=== PATIENT | female | born 1940 | race Caucasian/White ===

== ENCOUNTER 2017-09-26 14:18 | Emergency (ER) | payer MEDICARE, BC ==
[~2017-09-26] VITALS: Ht 152.4 cm; Wt 57.2 kg
[~2017-09-26 14:18] MED LIST: ASPI81TA44 PO; BRIN10DR EACHEYE; METF-440 PO; MOXI3DRO LEFTEYE; SODI15DR7 RIGHTEYE
[2017-09-26 15:09] LABS: BASOPHILS % (AUTO) 0.8 % (0.0-2.0); EOSINOPHILS % (AUTO) 0.4 % (0.0-6.0); HEMATOCRIT 37 % (33-45); HEMOGLOBIN 12.7 g/dL (11.5-14.8); LYMPHOCYTES # (AUTO) 1.9 /CMM (0.8-4.8); LYMPHOCYTES % (AUTO) 33.2 % (20.0-44.0); MEAN CORPUSCULAR HGB CONC 34 g/dl (31.0-36.0); MEAN CORPUSCULAR VOLUME 87 fL (82-100); MONOCYTES # (AUTO) 0.4 /CMM (0.1-1.30); MONOCYTES % (AUTO) 7.9 % (2.0-12.0); NEUTROPHILS # (AUTO) 3.3 /CMM (1.8-8.9); NEUTROPHILS % (AUTO) 57.7 % (43.0-81.0); PLATELET COUNT (AUTO) 186 /CMM (150-450); RED BLOOD CELL COUNT(AUTO) 4.25 MIL/uL (4.0-5.2); WHITE BLOOD COUNT (AUTO) 5.6 K/uL (4.3-11.0)
[2017-09-26 15:25] LABS: CALCIUM, SERUM 9.5 mg/dL (8.5-10.1); CARBON DIOXIDE 28 mmol/L (21-32); CHLORIDE 104 mmol/L (98-107); CREATININE 0.7 mg/dL (0.6-1.3); GLUCOSE 100 mg/dL (74-106); POTASSIUM 3.9 mmol/L (3.5-5.1); SODIUM SERUM 137 mmol/L (136-145); UREA NITROGEN, BLOOD 13 mg/dL (7-18)
[2017-09-26 18:28] VITALS: BP 138/84
== END 2017-09-26 18:28 | disposition home or self-care (01) ==
LOC: ER 14:19
DX: S05.11XA Contusion of eyeball and orbital tissues, right eye, initial encounter (principal); M79.644 Pain in right finger(s); M79.645 Pain in left finger(s); E11.9 Type 2 diabetes mellitus without complications; I10 Essential (primary) hypertension; J45.909 Unspecified asthma, uncomplicated; Z79.82 Long term (current) use of aspirin; Z85.3 Personal history of malignant neoplasm of breast; Z88.2 Allergy status to sulfonamides; Z88.5 Allergy status to narcotic agent; W06.XXXA Fall from bed, initial encounter; Y93.89 Activity, other specified; Y92.89 Other specified places as the place of occurrence of the external cause; Y99.8 Other external cause status
CPT/HCPCS: 36415; 70450-TC; 70486-TC; 73140-TC; 80048-TC; 85025-TC; 85730-TC; A4606; Z7610

== ENCOUNTER 2022-03-25 10:42 | Inpatient (IN) | payer MEDICARE, BC, OTHER ==
[~2022-03-25] VITALS: Ht 154.9 cm; Wt 43.5 kg
--- NOTE | 2022-03-25 10:14 | NUR ---
RN NOTE WBC 1.3, PLT 3.[address] SABA JUSTIN AWARE.
--- NOTE | 2022-03-25 11:00 | NUR ---
[id number] FROM HOME C/O SOB SATTING AT 86% RA, GIVEN 6LPM SATTING AT 92%. PLACED ON BED, AWAKE ALERT RESPONDING TO VERBAL STIMULI, BREATHING EVEN AND UNLABORED SATURATING AT 97% 4LIT O2 VIA NASAL CANULA.
--- NOTE | 2022-03-25 11:25 | NUR ---
BLOOD DRAWN AND SENT TO LAB
--- NOTE | 2022-03-25 11:36 | NUR ---
DAUGHTER CALLED, MENTIONED REACTION TO [place] GIVEN AFTER SURGERY IN 2015. PROVIDED CALLBACK NUMBER . DAUGHTER IS ON HER WAY WITH DAILY MEDICATIONS FOR RABACA, ETA 30 MIN.
[2022-03-25 11:55] LABS: BASOPHILS % (AUTO) 0.1 % (0.0-2.0); HEMATOCRIT 34 % (33-45); HEMOGLOBIN 11.1 g/dL (11.5-14.8); LYMPHOCYTES % (AUTO) 12.1 % (20.0-44.0); MEAN CORPUSCULAR HGB CONC 33 g/dl (31.0-36.0); MEAN CORPUSCULAR VOLUME 90 fL (82-100); MONOCYTES # (AUTO) 0.6 K/uL (0.1-1.30); MONOCYTES % (AUTO) 7.4 % (2.0-12.0); NEUTROPHILS # (AUTO) 6.8 K/uL (1.8-8.9); NEUTROPHILS % (AUTO) 80.4 % (43.0-81.0); PLATELET COUNT (AUTO) 124 K/uL (150-450); RED BLOOD CELL COUNT(AUTO) 3.76 MIL/uL (4.0-5.2); WHITE BLOOD COUNT (AUTO) 8.5 K/uL (4.3-11.0)
[2022-03-25] MEDS ORDERED: IPRATROPIUM NEB FS 0.5 MG/2.5 ML AMPUL.NEB NEB ONE (12:00)
[2022-03-25] MEDS ORDERED: ALBUTEROL FS 2.5 MG/3 ML VIAL.NEB NEB ONE (12:00)
[2022-03-25 12:15] LABS: CALCIUM, SERUM 9.7 mg/dL (8.5-10.1); CARBON DIOXIDE 31 mmol/L (21-32); CHLORIDE 101 mmol/L (98-107); CREATININE 0.9 mg/dL (0.6-1.3); GLUCOSE 135 mg/dL (74-106); POTASSIUM 3.7 mmol/L (3.5-5.1); SODIUM SERUM 138 mmol/L (136-145); UREA NITROGEN, BLOOD 17 mg/dL (7-18)
--- NOTE | 2022-03-25 12:20 | NUR ---
rt called for breathing tx
--- NOTE | 2022-03-25 12:22 | NUR ---
MOVE SHEET SUBMITTED.
[2022-03-25 12:28] LABS: ALANINE AMINOTRANSFERASE 27 U/L (12-78); ALKALINE PHOSPHATASE 71 U/L (46-116); ASPARTATE AMINOTRANSFERASE 39 U/L (15-37); BILIRUBIN,DIRECT 0.2 mg/dL (0.0-0.2); BILIRUBIN,TOTAL 0.6 mg/dL (0.2-1.0); TOTAL PROTEIN, SERUM 6.9 g/dL (6.4-8.2)
--- NOTE | 2022-03-25 12:28 | NUR ---
covid swab collected and sent to lab
--- NOTE | 2022-03-25 12:33 | NUR ---
GOT BED 110 QUAN ORDONEZ.
[2022-03-25] MEDS ORDERED: ATOR20TA PO (12:48)
[2022-03-25] MEDS ORDERED: MELO-107 PO (12:48)
[2022-03-25] MEDS ORDERED: CYCL5TAB PO (12:48)
[2022-03-25] MEDS ORDERED: CITA10TA9 PO (12:48)
[2022-03-25] MEDS ORDERED: MEMA10TA56 PO (12:48)
[2022-03-25] MEDS ORDERED: FERR325T23 PO (12:48)
[2022-03-25] MEDS ORDERED: DONE10TA44 PO (12:48)
[2022-03-25] MEDS ORDERED: LEVO50TA8 PO (12:48)
[2022-03-25] MEDS ORDERED: FURO40TA5 PO (12:48)
[2022-03-25] MEDS ORDERED: DOCU-141 PO (12:48)
[2022-03-25] MEDS ORDERED: MYRBETRIQ PO (12:48)
[2022-03-25] MEDS ORDERED: AZIT250T13 PO (12:49)
[2022-03-25] MEDS ORDERED: ASPIRIN 325 MG TABLET PO ONE (13:00)
--- NOTE | 2022-03-25 13:04 | NUR ---
LAB CALLED COVID POSITIVE
[2022-03-25] MEDS ORDERED: ASPIRIN 325 MG TABLET ONE (13:12)
[2022-03-25] MEDS ORDERED: POTA20TA83 PO (13:14)
--- NOTE | 2022-03-25 13:27 | NUR ---
[facility] CALLED CRISIS MANAGER PAGED.
[2022-03-25] MEDS ORDERED: DEXAMETHASONE SOD PHOSPHATE 4 MG/ML VIAL IV ONE (13:30)
[2022-03-25] MEDS ORDERED: DEXAMETHASONE SOD PHOSPHATE 10 MG/ML VIAL ONE (14:09)
[2022-03-25] MEDS ORDERED: IPRATROPIUM NEB FS 0.5 MG/2.5 ML AMPUL.NEB ONE (14:16)
[2022-03-25] MEDS ORDERED: ALBUTEROL FS 2.5 MG/3 ML VIAL.NEB ONE (14:16)
--- NOTE | 2022-03-25 15:21 | NUR ---
REPORT GIVEN TO MERY RN ROOM 110 FOR NINO
--- NOTE | 2022-03-25 15:55 | NUR ---
RN NOTE RECEIVED REPORT FROM [facility] ED AT 1521. PT ARRIVED VIA GURNEY FROM ED WITH QUAN ROBERT. PT IS A0X1, CONFUSED. VS TAKEN: BP: 118/48, HR: 74, RR: 20, AXILLARY TEMP: 97.0. BREATHING ON 3L NC WITH O2 SAT OF 98%. RAC #20 IV PATIENT AND INTACT, SL. SR ON TELE MONITOR. SKIN ASSESSMENT PERFORMED, SKIN C/D/I. NO EDEMA PRESENT. BOWELS HYPERACTIVE. BELONGINGS ACCOUNTED FOR. SAFETY MEASURES IN PLACE, BED LOCKED IN LOWEST POSITION. SIDERAILS UP X3; CALL LIGHT WITHIN REACH. WILL CONTINUE TO MONITOR
--- NOTE | 2022-03-25 16:24 | NUR ---
RN NOTES CONTACT DR HALIMA LAU FOR ADMISSION ORDER. IS AWARE.
[2022-03-25 19:39] VITALS: BP 118/48
[2022-03-25 20:00] VITALS: BP_SYST 160; BP_SYST 171; BP_DIAS 62
--- NOTE | 2022-03-25 20:00 | NUR ---
telegraph editor notes Received pts in bed awake a/ox1 non verbal .on 3liters on o2 via nc , sating 95% no sb no distress noted, v/s stable afebrile still awaiting for admission order dr ryan made aware.pts on contact isolation . ovid 19 , precautionary measures observed at all times.daughter called updated with ptd condition will continue to monitor pts.
--- NOTE | 2022-03-25 20:01 | NUR ---
RN CLOSING NOTE RN IS BED, AOX0-1, UNABLE TO MAKE NEEDS KNOWN. BREATHING ON RA WITH 02 SAT OF 99% ON 3L NC. RAC #20 IV FLUSHED AND INTACT, NO S/S BLEEDING. TITLE CLERK AUTOMOBILE SR WITH HR AT 75. ALL SAFETY MEASURES IN PLACE, BED LOCKED IN LOWEST POSITION. WILL ENDORSE CONTINUITY OF CARE TO RANCH COOK.
[2022-03-26] VITALS: BP 139/58
[2022-03-26] MEDS ORDERED: Z GUARD REMEDY 4 OZ OINT TP PRN
[2022-03-26] MEDS ORDERED: ACETAMINOPHEN 325 MG TABLET PO PRN
[2022-03-26] MEDS ORDERED: ONDANSETRON HCL/PF 4 MG/2 ML VIAL IVP PRN
[2022-03-26] MEDS ORDERED: AZITHROMYCIN 250 MG TABLET PO SCH
--- NOTE | 2022-03-26 | NUR ---
telecommunications field engineer notes Received admission order iv bumex 4mg/hr (10ml/hr )order noted and carried out.
[2022-03-26] MEDS ORDERED: BUMETANIDE INJ 4 MG in IV NS 0.9% 24 ML IV ONE (00:30)
[2022-03-26] MEDS ORDERED: BUMETANIDE INJ 0.25 MG/ML VIAL ONE ×2 (01:00→01:01)
[2022-03-26] MEDS: AZITHROMYCIN 250 MG TABLET PO SCH (01:37)
[2022-03-26] MEDS: ALBUTEROL FS 2.5 MG/0.5 ML VIAL.NEB NEB SCH ×2 (03:30→07:35)
[2022-03-26] MEDS: IPRATROPIUM NEB FS 0.5 MG/2.5 ML AMPUL.NEB NEB SCH ×2 (03:30→07:35)
[2022-03-26 04:00] VITALS: BP 142/62
--- NOTE | 2022-03-26 05:00 | NUR ---
OVERNIGHT STOCKER NOTES BLOOD GAS RESULT RELAYED TO SOO MARKS WITH NNO (PH 7.470,PCO2 42.6,P02 85.8 ,HC03 30.3)
--- NOTE | 2022-03-26 05:14 | NUR ---
PT ON 3L NC. ABG DONE. RN NOTIFIED WITH THE RESULT.
[2022-03-26 05:26] LABS: ABG OXYGEN SATURATION 96.3 % (92.0-98.5); ABG PCO2 42.6 mmHg (35.0-45.0); ABG PO2 85.8 mmHg (75.0-100.0); AaDO2 92.5 mmHg; COHb 0.1 % (0.5-1.5); MetHb 0.3 % (0.0-1.5); O2Hb 95.9 % (94.0-97.0); SITE, ABG Right Radial; VENT MODE, BG Nasal Cannula
[2022-03-26 07:19] LABS: HEMATOCRIT 35 % (33-45); HEMOGLOBIN 11.2 g/dL (11.5-14.8); LYMPHOCYTES % (AUTO) 11.8 % (20.0-44.0); MEAN CORPUSCULAR HGB CONC 32 g/dl (31.0-36.0); MEAN CORPUSCULAR VOLUME 90 fL (82-100); MONOCYTES # (AUTO) 0.4 K/uL (0.1-1.30); MONOCYTES % (AUTO) 4.7 % (2.0-12.0); NEUTROPHILS % (AUTO) 83.5 % (43.0-81.0); PLATELET COUNT (AUTO) 124 K/uL (150-450); RED BLOOD CELL COUNT(AUTO) 3.83 MIL/uL (4.0-5.2); WHITE BLOOD COUNT (AUTO) 8.4 K/uL (4.3-11.0)
--- NOTE | 2022-03-26 07:30 | NUR ---
SPANISHER OPENING NOTES: Received patient in bed awake a/ox1 non verbal .on 3liters on o2 via nc , sating 95% no sob no distress noted, v/s stable afebrile .sinus rhythm on tele monitor.pt on contact isolation for covid 19 , maintained safety measures, bed in low and locked position, side rail up, call light within reach,R AC saline lock intact patent and flushing well.will continue to monitor .
--- NOTE | 2022-03-26 07:36 | NUR ---
RN CLOSING NOTE RN IS BED, AOX0-1, BREATHING ON RA WITH 02 SAT OF 99% ON 3L NC. BUMEX DRIP DISCONTINUED ORDERED.RAC #20 IV FLUSHED AND INTACT, NO S/S BLEEDING. PSYCHOLOGICAL OPERATIONS SPECIALIST SR WITH HR AT 85. ALL SAFETY MEASURES IN PLACE, BED LOCKED IN LOWEST POSITION. WILL ENDORSE CONTINUITY OF CARE TO day shift SHIFT.
[2022-03-26] MEDS: LEVOTHYROXINE SODIUM 50 MCG TABLET PO SCH (07:47)
[2022-03-26] MEDS: PANTOPRAZOLE 40 MG TABLET.DR PO SCH (07:47)
[2022-03-26 08:00] VITALS: BP 134/75
[2022-03-26] MEDS: POTASSIUM CHLORIDE 20 MEQ TAB.PRT.SR PO SCH (09:37)
[2022-03-26] MEDS: FERROUS SULFATE (325 MG) 325 MG/TAB TABLET PO SCH (09:37)
[2022-03-26] MEDS: DEXAMETHASONE SOD PHOSPHATE 10 MG/ML VIAL IV SCH (09:37)
[2022-03-26] MEDS: MEMANTINE HCL 5 MG TABLET PO SCH (09:37)
[2022-03-26] MEDS: DOCUSATE SODIUM 100 MG CAPSULE PO SCH (09:38)
[2022-03-26] MEDS: CITALOPRAM HYDROBROMIDE 10 MG TABLET PO SCH (09:38)
[2022-03-26] MEDS: FUROSEMIDE 40 MG TABLET PO SCH (09:38)
--- NOTE | 2022-03-26 10:00 | NUR ---
TX NOT GIVEN PATIENT IS COVID POSITIVE. Addendum: 03/26/22 at 1001 by MAXWELL ROSS RT Amended: Links added.
[2022-03-26 10:24] LABS: CALCIUM, SERUM 10.3 mg/dL (8.5-10.1); CREATININE 0.7 mg/dL (0.6-1.3); MAGNESIUM 1.9 mg/dL (1.8-2.4); PHOSPHORUS 2.8 mg/dL (2.5-4.9); POTASSIUM 3.4 mmol/L (3.5-5.1)
[2022-03-26 12:00] VITALS: BP 157/85
[2022-03-26] MEDS: IPRATROPIUM/ALBUTEROL INHALER IH SCH ×2 (12:32→18:00)
[2022-03-26 16:00] VITALS: BP 141/91
[2022-03-26] MEDS: GLUCERNA SHAKE 237 ML CAN PO SCH (17:15)
--- NOTE | 2022-03-26 19:35 | NUR ---
HEDIS SPECIALIST CLOSING NOTE PT IS BED, AOX0-1, UNABLE TO MAKE NEEDS KNOWN. BREATHING ON RA WITH 02 SAT OF 99% ON 3L NC. RAC #20 IV FLUSHED AND INTACT, NO S/S BLEEDING. APPLE PICKER SR WITH HR AT 75. ALL SAFETY MEASURES IN PLACE, BED LOCKED IN LOWEST POSITION. WILL ENDORSE CONTINUITY OF CARE TO NURSING PROFESSOR.
[2022-03-26 20:00] VITALS: BP 150/87
--- NOTE | 2022-03-26 20:00 | NUR ---
RN NOTE RECEIVED PT AWAKE WATCHING TV. NOT IN ANY DISTRESS. ON O2 AT 3L. NO SIGNS OF PAIN. IV LINE PATENT AND INTACT. ALL SAFETY MEASURES IN PLACE PER PROTOCOL WILL CONTINUE TO MONITOR
[2022-03-26] MEDS: ATORVASTATIN 10 MG TABLET PO SCH (21:48)
[2022-03-26] MEDS: DONEPEZIL 5 MG TABLET PO SCH (21:48)
[2022-03-26] MEDS: ENOXAPARIN SODIUM 40 MG/0.4 ML DISP.SYRIN SQ SCH ×2 (21:50)
[2022-03-27] VITALS: BP 152/90
[2022-03-27] MEDS: IPRATROPIUM/ALBUTEROL INHALER IH SCH ×4 (00:07→17:32)
--- NOTE | 2022-03-27 02:58 | NUR ---
RN NOTE PT WITH EPISODES OF REMOVING O2 CANNULA. NO DISTRESS NOTED. O2 SAT 95-96% ON ROOM AIR. WILL MONITOR PT WITHOUT O2.
[2022-03-27 04:00] VITALS: BP 124/63
--- NOTE | 2022-03-27 07:21 | NUR ---
RN NOTE PT ABLE TO TOLERATE ROOM AIR. NO DISTRESS NOTED. REMAIN AFEBRILE. SR ON TELE MONITOR HR 60. ENDORSED TO AM SHIFT NURSE FOR NINO.
--- NOTE | 2022-03-27 07:30 | NUR ---
RN NOTE RECEIVED PATIENT IN BED RESTING ALERT ORIENTED X0 CONFUSED,VERBALLY RESPONSIVE ON ROOM AIR O2;94% IV SITE IS ON RIGHT AC INTACT PATENT ON ISOLATION FOR COVID POSITIVE,INCONTINENT BOWEL/BLADDER,SAFETY MEASURE IMPLEMENT,HEAD OF THE BED ELEVATED,BED IN LOW POSITION AND LOCKED,CONTINUE TO MONITOR.
[2022-03-27 07:37] LABS: HEMATOCRIT 33 % (33-45); HEMOGLOBIN 10.8 g/dL (11.5-14.8); LYMPHOCYTES # (AUTO) 1.1 K/uL (0.8-4.8); LYMPHOCYTES % (AUTO) 12.3 % (20.0-44.0); MEAN CORPUSCULAR HGB CONC 33 g/dl (31.0-36.0); MEAN CORPUSCULAR VOLUME 90 fL (82-100); MONOCYTES # (AUTO) 0.5 K/uL (0.1-1.30); NEUTROPHILS # (AUTO) 7.2 K/uL (1.8-8.9); NEUTROPHILS % (AUTO) 81.7 % (43.0-81.0); PLATELET COUNT (AUTO) 135 K/uL (150-450); RED BLOOD CELL COUNT(AUTO) 3.67 MIL/uL (4.0-5.2); WHITE BLOOD COUNT (AUTO) 8.9 K/uL (4.3-11.0)
[2022-03-27] MEDS: PANTOPRAZOLE 40 MG TABLET.DR PO SCH (07:47)
[2022-03-27] MEDS: LEVOTHYROXINE SODIUM 50 MCG TABLET PO SCH (07:47)
[2022-03-27] MEDS: GLUCERNA SHAKE 237 ML CAN PO SCH ×2 (07:56→17:15)
[2022-03-27 08:00] VITALS: BP 158/67
[2022-03-27] MEDS: MEMANTINE HCL 5 MG TABLET PO SCH (08:48)
[2022-03-27] MEDS: FERROUS SULFATE (325 MG) 325 MG/TAB TABLET PO SCH (08:48)
[2022-03-27] MEDS: DEXAMETHASONE SOD PHOSPHATE 10 MG/ML VIAL IV SCH (08:49)
[2022-03-27] MEDS: FUROSEMIDE 40 MG TABLET PO SCH (08:49)
[2022-03-27] MEDS: DOCUSATE SODIUM 100 MG CAPSULE PO SCH (08:49)
[2022-03-27] MEDS: AZITHROMYCIN 250 MG TABLET PO SCH (08:49)
[2022-03-27] MEDS: POTASSIUM CHLORIDE 20 MEQ TAB.PRT.SR PO SCH (08:49)
[2022-03-27] MEDS: CITALOPRAM HYDROBROMIDE 10 MG TABLET PO SCH (08:49)
[2022-03-27 09:21] LABS: CALCIUM, SERUM 10.2 mg/dL (8.5-10.1); CREATININE 0.8 mg/dL (0.6-1.3); MAGNESIUM 1.9 mg/dL (1.8-2.4); POTASSIUM 3.4 mmol/L (3.5-5.1)
[2022-03-27 12:00] VITALS: BP 159/80
[2022-03-27] MEDS ORDERED: NEUTRA PHOS 1 POWD.PACKET PO ONE (13:00)
[2022-03-27 16:00] VITALS: BP 147/61
--- NOTE | 2022-03-27 16:00 | NUR ---
RN NOTE SPOKE WITH HER DAUGHTER,INFORMED PATIENT SITUATION,CONTINUE TO MONITOR.
--- NOTE | 2022-03-27 19:29 | NUR ---
RN NOTE PATIENT REMAINS ALERT ORIENTED X0 CONFUSED,ON ROOM AIR O2:94% NO SOB NOT ACUTE DISTRESS NOTED ALL DUE MEDS GIVEN MD ORDERED KEPT CLEAN AND DRY ALL THE TIME,TURNED AND REPOSITIONED EVERY 2 HOURS ALL NEEDS MET.ENDORSE NEXT COMING SHIFT FOR CONTINUATION OF CARE.
[2022-03-27 20:00] VITALS: BP 126/93
[2022-03-27] MEDS: ATORVASTATIN 10 MG TABLET PO SCH (21:39)
[2022-03-27] MEDS: DONEPEZIL 5 MG TABLET PO SCH (21:39)
[2022-03-27] MEDS: ENOXAPARIN SODIUM 40 MG/0.4 ML DISP.SYRIN SQ SCH (21:41)
[2022-03-28] MEDS: IPRATROPIUM/ALBUTEROL INHALER IH SCH ×2 (01:30→06:23)
--- NOTE | 2022-03-28 03:30 | NUR ---
ms rn ntes Pts discharged home as ordered moss picker by [facility] ambulance ,in stable condition , discharged home instruction given to ambulance ,verbalize understanding iv heplock removed. no bleeding noted , left hospital at 1530hrs
[2022-03-28 04:00] VITALS: BP 164/74
--- NOTE | 2022-03-28 07:03 | NUR ---
RN CLOSING NOTE ON COVID ISOLATION. A/OXO, VERY CONFUSED. ROOM AIR. NO C/O PAIN. MED SURG STATUS. POSSIBLE DC THIS AM.
[2022-03-28 07:31] LABS: BASOPHILS % (AUTO) 0.1 % (0.0-2.0); HEMATOCRIT 37 % (33-45); HEMOGLOBIN 11.8 g/dL (11.5-14.8); LYMPHOCYTES # (AUTO) 1.6 K/uL (0.8-4.8); LYMPHOCYTES % (AUTO) 18.5 % (20.0-44.0); MEAN CORPUSCULAR HGB CONC 32 g/dl (31.0-36.0); MEAN CORPUSCULAR VOLUME 91 fL (82-100); MONOCYTES # (AUTO) 0.7 K/uL (0.1-1.30); MONOCYTES % (AUTO) 8.3 % (2.0-12.0); NEUTROPHILS # (AUTO) 6.2 K/uL (1.8-8.9); NEUTROPHILS % (AUTO) 73.1 % (43.0-81.0); PLATELET COUNT (AUTO) 143 K/uL (150-450); RED BLOOD CELL COUNT(AUTO) 4.04 MIL/uL (4.0-5.2); WHITE BLOOD COUNT (AUTO) 8.5 K/uL (4.3-11.0)
[2022-03-28] MEDS: LEVOTHYROXINE SODIUM 50 MCG TABLET PO SCH (07:41)
[2022-03-28] MEDS: PANTOPRAZOLE 40 MG TABLET.DR PO SCH (07:41)
[2022-03-28 07:50] LABS: CALCIUM, SERUM 10.5 mg/dL (8.5-10.1); CARBON DIOXIDE 31 mmol/L (21-32); CHLORIDE 108 mmol/L (98-107); CREATININE 0.9 mg/dL (0.6-1.3); GLUCOSE 135 mg/dL (74-106); MAGNESIUM 2.3 mg/dL (1.8-2.4); PHOSPHORUS 2.3 mg/dL (2.5-4.9); POTASSIUM 3.4 mmol/L (3.5-5.1); SODIUM SERUM 145 mmol/L (136-145); UREA NITROGEN, BLOOD 29 mg/dL (7-18)
[2022-03-28 08:00] VITALS: BP 156/94
--- NOTE | 2022-03-28 08:00 | NUR ---
MS RN OPENING NOTES: Received patient in bed awake a/ox1 non verbal .on r/a , sating 95% no sob no distress noted, v/s stable afebrile .sinus rhythm on tele monitor.pt on contact isolation for covid 19 , maintained safety measures, bed in low and locked position, side rail up, All due meds given as ordered no ase noted. call light within reach,R AC saline lock intact patent and flushing well.will continue to monitor .
[2022-03-28] MEDS: POTASSIUM CHLORIDE 20 MEQ TAB.PRT.SR PO SCH (09:21)
[2022-03-28] MEDS: FUROSEMIDE 40 MG TABLET PO SCH (09:21)
[2022-03-28] MEDS: FERROUS SULFATE (325 MG) 325 MG/TAB TABLET PO SCH (09:21)
[2022-03-28] MEDS: DEXAMETHASONE SOD PHOSPHATE 10 MG/ML VIAL IV SCH (09:21)
[2022-03-28] MEDS: MEMANTINE HCL 5 MG TABLET PO SCH (09:22)
[2022-03-28] MEDS: DOCUSATE SODIUM 100 MG CAPSULE PO SCH (09:22)
[2022-03-28] MEDS: CITALOPRAM HYDROBROMIDE 10 MG TABLET PO SCH (09:22)
[2022-03-28] MEDS: AZITHROMYCIN 250 MG TABLET PO SCH (09:22)
[2022-03-28] MEDS: GLUCERNA SHAKE 237 ML CAN PO SCH (09:35)
[2022-03-28] MEDS ORDERED: K PHOS NEUTRAL 250 MG TABLET PO ONE (10:00)
[2022-03-28] MEDS ORDERED: ALBU8.5H8 INH (11:25)
[2022-03-28 12:00] VITALS: BP 140/74
--- NOTE | 2022-03-28 12:00 | NUR ---
ms rn notes Daughter updated with pts codition , pts is afebrile no sob no distress noted , told daughter may pts possible discharged home today . will update daughter when its cofirm.
--- NOTE | 2022-03-28 12:30 | NUR ---
MS rn notes received a call from case operator mkie that pts for discharge today , nery will arrange for ambulance .jill daughter made aware.cotton picker operator time is 230pm.
== END 2022-03-28 15:30 | disposition home or self-care (01) | DRG 177 ==
LOC: ER 10:51 → TELE1 15:47 → MEDSG1 03-27 13:38
PROVIDERS: ADMIT Nurse Practitioner Acute Care; ATTEND Nurse Practitioner Acute Care
DX: U07.1 COVID-19 (principal); G93.41 Metabolic encephalopathy; I21.A1 Myocardial infarction type 2; J96.01 Acute respiratory failure with hypoxia; I50.33 Acute on chronic diastolic (congestive) heart failure; J12.82 Pneumonia due to coronavirus disease 2019; J94.2 Hemothorax; D69.6 Thrombocytopenia, unspecified; E11.9 Type 2 diabetes mellitus without complications; Z85.3 Personal history of malignant neoplasm of breast; J45.909 Unspecified asthma, uncomplicated; I11.0 Hypertensive heart disease with heart failure; Z96.659 Presence of unspecified artificial knee joint; Z88.5 Allergy status to narcotic agent; Z88.2 Allergy status to sulfonamides; Z88.8 Allergy status to other drugs, medicaments and biological substances; Z79.84 Long term (current) use of oral hypoglycemic drugs; Z79.899 Other long term (current) drug therapy; Z79.82 Long term (current) use of aspirin; E87.6 Hypokalemia; E83.52 Hypercalcemia; Z90.49 Acquired absence of other specified parts of digestive tract; Z87.440 Personal history of urinary (tract) infections; M79.10 Myalgia, unspecified site; Z90.710 Acquired absence of both cervix and uterus; E03.9 Hypothyroidism, unspecified
CPT/HCPCS: 36415; 36600; 71045-TC; 80048-TC; 80061-TC; 80076-TC; 82803-TC; 83735-TC; 83880; 84100-TC; 84484-TC; 85025-TC; 85378-TC; 86140-TC; 87081-TC; 94799-TC; 97110-TC; C9803; G0378; J1100; J1650; J3490; J7030

== ENCOUNTER 2023-09-13 09:54 | Emergency (ER) | payer MEDICARE, BC, OTHER ==
[~2023-09-13] VITALS: Ht 152.4 cm; Wt 48.1 kg
[~2023-09-13 09:54] MED LIST changes: +ALBU8.5H8 INH; -ASPI81TA44 PO; +ATOR20TA PO; +AZIT250T13 PO; -BRIN10DR EACHEYE; +CITA10TA9 PO; +CYCL5TAB PO; +DOCU-141 PO; +DONE10TA44 PO; +FERR325T23 PO; +FURO40TA5 PO; +LEVO50TA8 PO; +MELO-107 PO; +MEMA10TA56 PO; -METF-440 PO; -MOXI3DRO LEFTEYE; +MYRBETRIQ PO; +POTA20TA83 PO; -SODI15DR7 RIGHTEYE
[2023-09-13 13:49] VITALS: BP 133/71; TEMP 98.6; O2SAT 100
== END 2023-09-13 13:51 | disposition home or self-care (01) ==
LOC: ER 09:56
DX: L89.899 Pressure ulcer of other site, unspecified stage (principal); R60.0 Localized edema; F03.90 Unspecified dementia, unspecified severity, without behavioral disturbance, psychotic disturbance, mood disturbance, and anxiety; I10 Essential (primary) hypertension; E78.5 Hyperlipidemia, unspecified; J45.909 Unspecified asthma, uncomplicated; E11.9 Type 2 diabetes mellitus without complications; E03.9 Hypothyroidism, unspecified; Z79.899 Other long term (current) drug therapy; Z90.49 Acquired absence of other specified parts of digestive tract; Z88.2 Allergy status to sulfonamides; Z88.5 Allergy status to narcotic agent
CPT/HCPCS: 99284; 93970; 73503; 73564; A6403; 73502

== ENCOUNTER 2024-03-08 10:52 | Inpatient (IN) | payer MEDICARE, OTHER ==
[~2024-03-08] VITALS: Ht 152.4 cm; Wt 44.5 kg
[2024-03-08] MEDS: IV NS 0.9% 1,000 ML BAG IV ONE (11:11)
[2024-03-08 11:30] LABS: BASOPHILS % (AUTO) 0.1 % (0.0-2.0); HEMATOCRIT 41 % (33-45); HEMOGLOBIN 13.2 g/dL (11.5-14.8); LYMPHOCYTES # (AUTO) 0.9 K/uL (0.8-4.8); LYMPHOCYTES % (AUTO) 4.8 % (20.0-44.0); MEAN CORPUSCULAR HEMOGLOBIN 30 PG (26.0-33.0); MEAN CORPUSCULAR HGB CONC 32 g/dl (31.0-36.0); MEAN CORPUSCULAR VOLUME 94 fL (82-100); MONOCYTES # (AUTO) 1.7 K/uL (0.1-1.30); MONOCYTES % (AUTO) 8.8 % (2.0-12.0); NEUTROPHILS # (AUTO) 16.9 K/uL (1.8-8.9); NEUTROPHILS % (AUTO) 86.3 % (43.0-81.0); PLATELET COUNT (AUTO) 186 K/uL (150-450); RED CELL DISTRIBUTION WIDTH 16.5 % (11.5-15.0); WHITE BLOOD COUNT (AUTO) 19.6 K/uL (4.3-11.0)
[2024-03-08 11:38] LABS: CALCIUM, SERUM 10.2 mg/dL (8.5-10.1); CARBON DIOXIDE 25 mmol/L (21-32); CHLORIDE 110 mmol/L (98-107); GLUCOSE 214 mg/dL (74-106); POTASSIUM 4.7 mmol/L (3.5-5.1); SODIUM SERUM 143 mmol/L (136-145)
[2024-03-08 11:41] LABS: INR 1.13 (0.91-1.10); PARTIAL THROMBOPLASTIN TIME 26.9 SEC (24.3-34.3); PROTHROMBIN TIME 11.9 SECS (9.2-11.1)
[2024-03-08 11:43] LABS: ALANINE AMINOTRANSFERASE 41 U/L (12-78); ALBUMIN 2.4 g/dL (3.4-5.0); ALKALINE PHOSPHATASE 76 U/L (46-116); ASPARTATE AMINOTRANSFERASE 24 U/L (15-37); BILIRUBIN,DIRECT 0.4 mg/dL (0.0-0.2); BILIRUBIN,TOTAL 2.1 mg/dL (0.2-1.0); TOTAL PROTEIN, SERUM 6.2 g/dL (6.4-8.2)
[2024-03-08] MEDS: CEFEPIME 1 GM in IV D5W 50 ML IV ONE (11:45)
[2024-03-08 11:52] LABS: UREA NITROGEN, BLOOD 98 mg/dL (7-18)
[2024-03-08 11:53] LABS: LACTIC ACID 2.7 mmol/L (0.4-2.0)
[2024-03-08] MEDS: VANCOMYCIN 1 GM in IV D5W 250 ML IV ONE (12:14)
[2024-03-08] MEDS ORDERED: [UNRECOGNIZED DRUG - CODE] PO (12:52)
[2024-03-08] MEDS ORDERED: MIRABEGRON PO (12:52)
[2024-03-08] MEDS ORDERED: FERR220E2 PO (12:52)
[2024-03-08] MEDS ORDERED: ONDANSETRON HCL/PF 4 MG/2 ML VIAL IVP PRN (13:00)
[2024-03-08] MEDS ORDERED: DEXTROSE 50%-WATER 50 ML DISP.SYRIN IV PRN ×2 (13:00→20:30)
[2024-03-08 13:05] LABS: APPEARANCE,URINE BLOODY (CLEAR); COLOR,URINE RED (YELLOW)
[2024-03-08 13:07] LABS: BACTERIA,URINE Rare /HPF (None Seen); RBC,URINE TOO NUMEROUS TO COUN /HPF (0-2); SQUAMOUS EPITHELIAL CELL,UR Rare /HPF (None Seen)
[2024-03-08 14:00] VITALS: BP 136/70; TEMP 98.1; O2SAT 97
[2024-03-08] MEDS: IV NS 0.9% 1,000 ML IV SCH (14:02)
[2024-03-08 16:24] VITALS: BP 137/80; TEMP 98.1; O2SAT 97
[2024-03-08] MEDS: ENSURE ENLIVE 237 ML LIQUID (VANILLA) PO SCH (17:00)
[2024-03-08 18:00] VITALS: BP 137/80; TEMP 98.1; O2SAT 97
[2024-03-08] MEDS: BLOOD SUGAR DIAGNOSTIC 1 EACH STRIP IN SCH ×2 (18:02→23:28)
[2024-03-08] MEDS: INSULIN REGULAR, HUMAN 100 UNIT/ML 3 ML VIAL SQ PRN ×2 (18:03→23:30)
[2024-03-08 20:00] VITALS: BP 145/78; TEMP 98.2; O2SAT 97
[2024-03-08] MEDS: HEPARIN SODIUM, PORCINE 5000 UNITS/1 ML VIAL SQ SCH (21:00)
[2024-03-08] MEDS: DONEPEZIL 5 MG TABLET PO SCH (21:02)
[2024-03-08] MEDS ORDERED: MIRABEGRON 50 MG PO SCH (22:00)
[2024-03-09] VITALS (23 sets, daily range): BP systolic 131–172; BP diastolic 59–83; TEMP 97.7–98.7; O2SAT 96–99
[2024-03-09 07:12] LABS: HEMATOCRIT 38 % (33-45); HEMOGLOBIN 12.2 g/dL (11.5-14.8); LYMPHOCYTES % (AUTO) 6.8 % (20.0-44.0); MEAN CORPUSCULAR HEMOGLOBIN 31 PG (26.0-33.0); MEAN CORPUSCULAR HGB CONC 32 g/dl (31.0-36.0); MEAN CORPUSCULAR VOLUME 95 fL (82-100); MONOCYTES % (AUTO) 6.6 % (2.0-12.0); NEUTROPHILS # (AUTO) 13.2 K/uL (1.8-8.9); NEUTROPHILS % (AUTO) 86.6 % (43.0-81.0); PLATELET COUNT (AUTO) 136 K/uL (150-450); RED BLOOD CELL COUNT(AUTO) 3.96 MIL/uL (4.0-5.2); RED CELL DISTRIBUTION WIDTH 16.1 % (11.5-15.0); WHITE BLOOD COUNT (AUTO) 15.2 K/uL (4.3-11.0)
[2024-03-09 07:40] LABS: ALANINE AMINOTRANSFERASE 37 U/L (12-78); ALBUMIN 2.3 g/dL (3.4-5.0); ALKALINE PHOSPHATASE 70 U/L (46-116); ASPARTATE AMINOTRANSFERASE 22 U/L (15-37); BILIRUBIN,TOTAL 2.7 mg/dL (0.2-1.0); CALCIUM, SERUM 9.9 mg/dL (8.5-10.1); CARBON DIOXIDE 25 mmol/L (21-32); CHLORIDE 117 mmol/L (98-107); CREATININE 0.9 mg/dL (0.6-1.3); GLUCOSE 181 mg/dL (74-106); MAGNESIUM 2.3 mg/dL (1.8-2.4); PHOSPHORUS 2.5 mg/dL (2.5-4.9); POTASSIUM 3.9 mmol/L (3.5-5.1); SODIUM SERUM 149 mmol/L (136-145); TOTAL PROTEIN, SERUM 6.2 g/dL (6.4-8.2); UREA NITROGEN, BLOOD 64 mg/dL (7-18)
[2024-03-09] MEDS: LEVOTHYROXINE SODIUM 50 MCG TABLET PO SCH (08:14)
[2024-03-09] MEDS: CITALOPRAM HYDROBROMIDE 10 MG TABLET PO SCH (09:00)
[2024-03-09] MEDS: FUROSEMIDE 40 MG TABLET PO SCH (09:00)
[2024-03-09] MEDS: MEMANTINE HCL 5 MG TABLET PO SCH (09:00)
[2024-03-09] MEDS: IV 1/2NS 1000 ML 1,000 ML IV SCH (10:29)
[2024-03-09] MEDS: CEFEPIME 1 GM in IV D5W 50 ML IV SCH (11:47)
[2024-03-09] MEDS: hydrALAZINE HCL IV 20 MG VIAL IV PRN (15:57)
[2024-03-09 16:42] LABS: ABG BASE EXCESS -2.3 mmol/L (-2.0-3.0); ABG OXYGEN SATURATION 98.8 % (94.0-98.0); ABG PCO2 41.4 mmHg (32.0-45.0); ABG PH 7.363 (7.350-7.450); ABG PO2 151.8 mmHg (83.0-108.0); ABG TOTAL HEMOGLOBIN 13.6 G/dL (12.0-16.0); COHb 0.7 % (0.5-1.5); MetHb 0.2 % (0.0-1.5); O2Hb 97.9 % (94.0-97.0); SITE, ABG RIGHT RADIAL
[2024-03-09] MEDS ORDERED: IOHEXOL-350 100 ML VIAL IV ONE (17:55)
[2024-03-09] MEDS ORDERED: IV NS 0.9% 250 ML IV ONE (17:55)
[2024-03-09] MEDS ORDERED: CT SWABBABLE VALVE TRANS SET 1 EA INFUS.SET MC ONE (17:55)
[2024-03-09] MEDS: VANCOMYCIN 1 GM in IV D5W 250 ML IV ONE (21:22)
[2024-03-09] MEDS: VANCOMYCIN 1 GM /D5W 250 ML PB IV ONE (21:23)
[2024-03-10] VITALS (41 sets, daily range): BP systolic 110–190; BP diastolic 50–91; TEMP 98.5–99.4; O2SAT 92–100
[2024-03-10 01:51] LABS: BASOPHILS % (AUTO) 0.1 % (0.0-2.0); HEMATOCRIT 37 % (33-45); LYMPHOCYTES # (AUTO) 1.1 K/uL (0.8-4.8); LYMPHOCYTES % (AUTO) 7.5 % (20.0-44.0); MEAN CORPUSCULAR HEMOGLOBIN 31 PG (26.0-33.0); MEAN CORPUSCULAR HGB CONC 32 g/dl (31.0-36.0); MEAN CORPUSCULAR VOLUME 96 fL (82-100); MONOCYTES # (AUTO) 1.2 K/uL (0.1-1.30); MONOCYTES % (AUTO) 8.5 % (2.0-12.0); NEUTROPHILS # (AUTO) 12.3 K/uL (1.8-8.9); NEUTROPHILS % (AUTO) 83.9 % (43.0-81.0); PLATELET COUNT (AUTO) 145 K/uL (150-450); RED BLOOD CELL COUNT(AUTO) 3.87 MIL/uL (4.0-5.2); RED CELL DISTRIBUTION WIDTH 16.9 % (11.5-15.0); WHITE BLOOD COUNT (AUTO) 14.6 K/uL (4.3-11.0)
[2024-03-10 02:01] LABS: CALCIUM, SERUM 9.9 mg/dL (8.5-10.1); CARBON DIOXIDE 25 mmol/L (21-32); CHLORIDE 124 mmol/L (98-107); CREATININE 0.7 mg/dL (0.6-1.3); GLUCOSE 161 mg/dL (74-106); POTASSIUM 3.9 mmol/L (3.5-5.1); SODIUM SERUM 156 mmol/L (136-145); UREA NITROGEN, BLOOD 46 mg/dL (7-18)
[2024-03-10 02:12] LABS: T4 (THYROXINE) 5.5 ug/dL (4.7-13.3); THYROID STIMULATING HORMONE 1.38 uIU/mL (0.358-3.74)
[2024-03-10] MEDS: IV D5W 1,000 ML IV PRN (03:33)
[2024-03-10] MEDS: VANCOMYCIN 500 MG in IV D5W 100 ML IV SCH (09:13)
[2024-03-10 10:16] LABS: CALCIUM, SERUM 9.9 mg/dL (8.5-10.1); CARBON DIOXIDE 26 mmol/L (21-32); CHLORIDE 124 mmol/L (98-107); CREATININE 0.7 mg/dL (0.6-1.3); GLUCOSE 184 mg/dL (74-106); POTASSIUM 3.9 mmol/L (3.5-5.1); SODIUM SERUM 156 mmol/L (136-145); UREA NITROGEN, BLOOD 41 mg/dL (7-18)
[2024-03-10 11:04] LABS: ABG BASE EXCESS -1.1 mmol/L (-2.0-3.0); ABG OXYGEN SATURATION 97.9 % (94.0-98.0); ABG PCO2 29.2 mmHg (32.0-45.0); ABG PH 7.482 (7.350-7.450); ABG TOTAL HEMOGLOBIN 12.7 G/dL (12.0-16.0); COHb 0.9 % (0.5-1.5); MetHb 0.3 % (0.0-1.5); O2Hb 96.7 % (94.0-97.0); SITE, ABG RIGHT RADIAL
[2024-03-11] VITALS (27 sets, daily range): BP systolic 107–191; BP diastolic 47–112; TEMP 97.3–99.5; O2SAT 95–99
[2024-03-11 05:27] LABS: CARBON DIOXIDE 23 mmol/L (21-32); CHLORIDE 121 mmol/L (98-107); CREATININE 0.6 mg/dL (0.6-1.3); GLUCOSE 171 mg/dL (74-106); POTASSIUM 3.6 mmol/L (3.5-5.1); SODIUM SERUM 152 mmol/L (136-145); UREA NITROGEN, BLOOD 35 mg/dL (7-18)
[2024-03-11 12:19] LABS: THYROID STIMULATING HORMONE 1.47 uIU/mL (0.358-3.74)
[2024-03-12] VITALS (16 sets, daily range): BP systolic 106–159; BP diastolic 21–105; TEMP 98.4–100.6; O2SAT 93–100
[2024-03-12 00:35] LABS: ABG BASE EXCESS -2.2 mmol/L (-2.0-3.0); ABG OXYGEN SATURATION 93.9 % (94.0-98.0); ABG PCO2 34.7 mmHg (32.0-45.0); ABG PH 7.414 (7.350-7.450); ABG PO2 67.5 mmHg (83.0-108.0); ABG TOTAL HEMOGLOBIN 13.4 G/dL (12.0-16.0); COHb 0.8 % (0.5-1.5); MetHb 0.3 % (0.0-1.5); O2Hb 92.9 % (94.0-97.0); SITE, ABG RIGHT RADIAL
[2024-03-12] MEDS: MORPHINE SULFATE INJ 2 MG/ML DISP.SYRIN IV PRN (01:46)
[2024-03-12 04:26] LABS: BASOPHILS % (AUTO) 0.1 % (0.0-2.0); HEMATOCRIT 36 % (33-45); HEMOGLOBIN 11.6 g/dL (11.5-14.8); LYMPHOCYTES % (AUTO) 6.6 % (20.0-44.0); MEAN CORPUSCULAR HEMOGLOBIN 31 PG (26.0-33.0); MEAN CORPUSCULAR HGB CONC 32 g/dl (31.0-36.0); MEAN CORPUSCULAR VOLUME 97 fL (82-100); MONOCYTES # (AUTO) 1.3 K/uL (0.1-1.30); MONOCYTES % (AUTO) 8.9 % (2.0-12.0); NEUTROPHILS # (AUTO) 12.4 K/uL (1.8-8.9); NEUTROPHILS % (AUTO) 84.4 % (43.0-81.0); PLATELET COUNT (AUTO) 180 K/uL (150-450); RED BLOOD CELL COUNT(AUTO) 3.77 MIL/uL (4.0-5.2); RED CELL DISTRIBUTION WIDTH 15.9 % (11.5-15.0); WHITE BLOOD COUNT (AUTO) 14.7 K/uL (4.3-11.0)
[2024-03-12 04:56] LABS: CALCIUM, SERUM 9.5 mg/dL (8.5-10.1); CARBON DIOXIDE 21 mmol/L (21-32); CHLORIDE 117 mmol/L (98-107); CREATININE 0.7 mg/dL (0.6-1.3); GLUCOSE 162 mg/dL (74-106); PHOSPHORUS 2.3 mg/dL (2.5-4.9); POTASSIUM 3.7 mmol/L (3.5-5.1); SODIUM SERUM 148 mmol/L (136-145); UREA NITROGEN, BLOOD 30 mg/dL (7-18)
[2024-03-12 09:11] LABS: FOLIC ACID > 20.0 ng/mL (>3.0)
[2024-03-12 10:21] LABS: ABG BASE EXCESS -0.4 mmol/L (-2.0-3.0); ABG PCO2 30.4 mmHg (32.0-45.0); ABG PH 7.483 (7.350-7.450); ABG PO2 102.6 mmHg (83.0-108.0); COHb 0.3 % (0.5-1.5); MetHb 0.2 % (0.0-1.5); O2Hb 97.5 % (94.0-97.0); SITE, ABG LEFT RADIAL
[2024-03-12] MEDS: THERAHONEY GEL 1.5 OZ TUBE TP SCH (11:26)
[2024-03-12] MEDS: Sodium Phosphate 15 MMOL in IV NS 0.9% 245 ML IV ONE (16:17)
[2024-03-12] MEDS: GLUCERNA 1.2 1,000 ML BOTTLE NG PRN (17:34)
[2024-03-12] MEDS: ACETAMINOPHEN 325 MG TABLET PO PRN (20:14)
[2024-03-13] VITALS (7 sets, daily range): BP systolic 129–152; BP diastolic 55–76; TEMP 98.3–99; O2SAT 97–98
[2024-03-13 06:45] LABS: CALCIUM, SERUM 8.8 mg/dL (8.5-10.1); CARBON DIOXIDE 20 mmol/L (21-32); CHLORIDE 114 mmol/L (98-107); CREATININE 0.7 mg/dL (0.6-1.3); GLUCOSE 149 mg/dL (74-106); POTASSIUM 3.4 mmol/L (3.5-5.1); SODIUM SERUM 144 mmol/L (136-145); UREA NITROGEN, BLOOD 25 mg/dL (7-18)
[2024-03-13] MEDS ORDERED: POTASSIUM CL. PREMIX PERIPHER. 50 ML IV SCH (10:30)
[2024-03-13] MEDS: POTASSIUM CHLORIDE 20 MEQ POWDER PACKET NG SCH (10:30)
[2024-03-13 10:43] LABS: EOSINOPHILS # (AUTO) 0.1 K/uL (0.0-0.7); EOSINOPHILS % (AUTO) 0.4 % (0.0-6.0); HEMATOCRIT 35 % (33-45); HEMOGLOBIN 10.7 g/dL (11.5-14.8); LYMPHOCYTES # (AUTO) 1.6 K/uL (0.8-4.8); MEAN CORPUSCULAR HEMOGLOBIN 31 PG (26.0-33.0); MEAN CORPUSCULAR HGB CONC 31 g/dl (31.0-36.0); MEAN CORPUSCULAR VOLUME 99 fL (82-100); MONOCYTES # (AUTO) 1.2 K/uL (0.1-1.30); MONOCYTES % (AUTO) 7.6 % (2.0-12.0); NEUTROPHILS # (AUTO) 13.3 K/uL (1.8-8.9); PLATELET COUNT (AUTO) 151 K/uL (150-450); RED BLOOD CELL COUNT(AUTO) 3.51 MIL/uL (4.0-5.2); RED CELL DISTRIBUTION WIDTH 16.8 % (11.5-15.0); WHITE BLOOD COUNT (AUTO) 16.2 K/uL (4.3-11.0)
[2024-03-14] VITALS: BP 133/69; TEMP 98.8; O2SAT 97
[2024-03-14 04:00] VITALS: BP 151/69; TEMP 98.4; O2SAT 97
[2024-03-14 06:39] LABS: BASOPHILS % (AUTO) 0.1 % (0.0-2.0); EOSINOPHILS # (AUTO) 0.1 K/uL (0.0-0.7); EOSINOPHILS % (AUTO) 0.7 % (0.0-6.0); HEMATOCRIT 34 % (33-45); MEAN CORPUSCULAR HEMOGLOBIN 31 PG (26.0-33.0); MEAN CORPUSCULAR HGB CONC 33 g/dl (31.0-36.0); MEAN CORPUSCULAR VOLUME 95 fL (82-100); MONOCYTES # (AUTO) 1.1 K/uL (0.1-1.30); MONOCYTES % (AUTO) 8.6 % (2.0-12.0); NEUTROPHILS # (AUTO) 9.1 K/uL (1.8-8.9); NEUTROPHILS % (AUTO) 74.6 % (43.0-81.0); PLATELET COUNT (AUTO) 154 K/uL (150-450); RED BLOOD CELL COUNT(AUTO) 3.51 MIL/uL (4.0-5.2); RED CELL DISTRIBUTION WIDTH 15.2 % (11.5-15.0); WHITE BLOOD COUNT (AUTO) 12.3 K/uL (4.3-11.0)
[2024-03-14 07:14] LABS: CALCIUM, SERUM 9.8 mg/dL (8.5-10.1); CARBON DIOXIDE 27 mmol/L (21-32); CHLORIDE 111 mmol/L (98-107); CREATININE 0.6 mg/dL (0.6-1.3); GLUCOSE 126 mg/dL (74-106); POTASSIUM 4.1 mmol/L (3.5-5.1); SODIUM SERUM 142 mmol/L (136-145); UREA NITROGEN, BLOOD 17 mg/dL (7-18)
[2024-03-14 08:00] VITALS: BP 145/84; TEMP 98; O2SAT 98
[2024-03-14] MEDS: CEFEPIME 2 GM in IV D5W 100 ML IV SCH (11:11)
[2024-03-14 12:00] VITALS: TEMP 98; O2SAT 95
[2024-03-14 16:00] VITALS: BP 129/61; TEMP 98.3; O2SAT 96
[2024-03-14 20:58] VITALS: BP 136/72; TEMP 99.1; O2SAT 96
[2024-03-15] VITALS (7 sets, daily range): BP systolic 123–170; BP diastolic 53–72; TEMP 97.9–99.1; O2SAT 96–100
[2024-03-15 06:41] LABS: BASOPHILS % (AUTO) 0.1 % (0.0-2.0); EOSINOPHILS # (AUTO) 0.1 K/uL (0.0-0.7); EOSINOPHILS % (AUTO) 0.9 % (0.0-6.0); HEMATOCRIT 33 % (33-45); HEMOGLOBIN 11.1 g/dL (11.5-14.8); LYMPHOCYTES # (AUTO) 1.6 K/uL (0.8-4.8); LYMPHOCYTES % (AUTO) 16.8 % (20.0-44.0); MEAN CORPUSCULAR HEMOGLOBIN 32 PG (26.0-33.0); MEAN CORPUSCULAR HGB CONC 33 g/dl (31.0-36.0); MEAN CORPUSCULAR VOLUME 97 fL (82-100); MONOCYTES # (AUTO) 0.8 K/uL (0.1-1.30); MONOCYTES % (AUTO) 8.5 % (2.0-12.0); NEUTROPHILS # (AUTO) 7.1 K/uL (1.8-8.9); NEUTROPHILS % (AUTO) 73.7 % (43.0-81.0); PLATELET COUNT (AUTO) 144 K/uL (150-450); RED BLOOD CELL COUNT(AUTO) 3.44 MIL/uL (4.0-5.2); RED CELL DISTRIBUTION WIDTH 15.4 % (11.5-15.0); WHITE BLOOD COUNT (AUTO) 9.7 K/uL (4.3-11.0)
[2024-03-15 07:23] LABS: CALCIUM, SERUM 9.9 mg/dL (8.5-10.1); CARBON DIOXIDE 24 mmol/L (21-32); CHLORIDE 109 mmol/L (98-107); CREATININE 0.5 mg/dL (0.6-1.3); GLUCOSE 149 mg/dL (74-106); POTASSIUM 4.2 mmol/L (3.5-5.1); SODIUM SERUM 139 mmol/L (136-145); UREA NITROGEN, BLOOD 18 mg/dL (7-18)
[2024-03-15] MEDS ORDERED: IV NS 0.9% 250 ML IV ONE (11:08)
[2024-03-15] MEDS ORDERED: IOHEXOL-350 100 ML VIAL IV ONE ×2 (11:08→11:25)
[2024-03-15] MEDS ORDERED: CT SWABBABLE VALVE TRANS SET 1 EA INFUS.SET MC ONE (11:08)
[2024-03-15 13:10] LABS: VITAMIN B1 THIAMINE,WB 162.7 nmol/L (66.5-200.0)
[2024-03-16] VITALS (7 sets, daily range): BP systolic 109–142; BP diastolic 55–66; TEMP 97.7–98.2; O2SAT 94–100
[2024-03-16 07:51] LABS: CALCIUM, SERUM 9.8 mg/dL (8.5-10.1); CARBON DIOXIDE 23 mmol/L (21-32); CHLORIDE 103 mmol/L (98-107); CREATININE 0.4 mg/dL (0.6-1.3); GLUCOSE 130 mg/dL (74-106); SODIUM SERUM 133 mmol/L (136-145); UREA NITROGEN, BLOOD 14 mg/dL (7-18)
[2024-03-16] MEDS: CEFTRIAXONE 1 G in IV D5W 50 ML IV SCH (11:37)
[2024-03-16 15:06] LABS: METHYLMALONIC ACID 167 nmol/L (0-378)
[2024-03-16] MEDS: DONEPEZIL 5 MG TABLET GT SCH (21:13)
[2024-03-17] VITALS (7 sets, daily range): BP systolic 129–166; BP diastolic 52–63; TEMP 97.6–98.5; O2SAT 96–100
[2024-03-17] MEDS: GLUCERNA 1.2 1,000 ML BOTTLE NG PRN (04:01)
[2024-03-17 06:51] LABS: BASOPHILS % (AUTO) 0.3 % (0.0-2.0); EOSINOPHILS # (AUTO) 0.1 K/uL (0.0-0.7); EOSINOPHILS % (AUTO) 0.7 % (0.0-6.0); HEMATOCRIT 35 % (33-45); HEMOGLOBIN 11.5 g/dL (11.5-14.8); LYMPHOCYTES # (AUTO) 1.7 K/uL (0.8-4.8); LYMPHOCYTES % (AUTO) 16.3 % (20.0-44.0); MEAN CORPUSCULAR HEMOGLOBIN 31 PG (26.0-33.0); MEAN CORPUSCULAR HGB CONC 33 g/dl (31.0-36.0); MEAN CORPUSCULAR VOLUME 95 fL (82-100); MONOCYTES # (AUTO) 0.9 K/uL (0.1-1.30); MONOCYTES % (AUTO) 9.2 % (2.0-12.0); NEUTROPHILS # (AUTO) 7.5 K/uL (1.8-8.9); NEUTROPHILS % (AUTO) 73.5 % (43.0-81.0); PLATELET COUNT (AUTO) 148 K/uL (150-450); RED BLOOD CELL COUNT(AUTO) 3.66 MIL/uL (4.0-5.2); WHITE BLOOD COUNT (AUTO) 10.2 K/uL (4.3-11.0)
[2024-03-17 07:48] LABS: CALCIUM, SERUM 10.3 mg/dL (8.5-10.1); CARBON DIOXIDE 29 mmol/L (21-32); CHLORIDE 106 mmol/L (98-107); CREATININE 0.5 mg/dL (0.6-1.3); GLUCOSE 129 mg/dL (74-106); POTASSIUM 4.3 mmol/L (3.5-5.1); SODIUM SERUM 139 mmol/L (136-145); UREA NITROGEN, BLOOD 14 mg/dL (7-18)
[2024-03-17] MEDS: LEVOTHYROXINE SODIUM 50 MCG TABLET GT SCH (08:33)
[2024-03-17] MEDS: CITALOPRAM HYDROBROMIDE 10 MG TABLET GT SCH (08:34)
[2024-03-17] MEDS: MEMANTINE HCL 5 MG TABLET GT SCH (08:34)
[2024-03-18] VITALS: BP 123/54; TEMP 98.8; O2SAT 97
[2024-03-18 04:00] VITALS: BP 124/49; TEMP 98.4; O2SAT 96
[2024-03-18 06:40] LABS: BASOPHILS % (AUTO) 0.3 % (0.0-2.0); EOSINOPHILS # (AUTO) 0.1 K/uL (0.0-0.7); EOSINOPHILS % (AUTO) 0.8 % (0.0-6.0); HEMATOCRIT 31 % (33-45); HEMOGLOBIN 10.6 g/dL (11.5-14.8); LYMPHOCYTES # (AUTO) 1.5 K/uL (0.8-4.8); LYMPHOCYTES % (AUTO) 15.8 % (20.0-44.0); MEAN CORPUSCULAR HEMOGLOBIN 32 PG (26.0-33.0); MEAN CORPUSCULAR HGB CONC 34 g/dl (31.0-36.0); MEAN CORPUSCULAR VOLUME 95 fL (82-100); MONOCYTES # (AUTO) 0.8 K/uL (0.1-1.30); MONOCYTES % (AUTO) 8.2 % (2.0-12.0); NEUTROPHILS % (AUTO) 74.9 % (43.0-81.0); PLATELET COUNT (AUTO) 160 K/uL (150-450); RED BLOOD CELL COUNT(AUTO) 3.32 MIL/uL (4.0-5.2); RED CELL DISTRIBUTION WIDTH 15.2 % (11.5-15.0)
[2024-03-18 07:30] LABS: CALCIUM, SERUM 10.8 mg/dL (8.5-10.1); CARBON DIOXIDE 30 mmol/L (21-32); CHLORIDE 104 mmol/L (98-107); CREATININE 0.4 mg/dL (0.6-1.3); GLUCOSE 122 mg/dL (74-106); POTASSIUM 4.7 mmol/L (3.5-5.1); SODIUM SERUM 139 mmol/L (136-145); UREA NITROGEN, BLOOD 17 mg/dL (7-18)
[2024-03-18 08:00] VITALS: BP 134/64; TEMP 98.4; O2SAT 97
[2024-03-18 16:00] VITALS: BP 150/70; TEMP 100.2; O2SAT 98
[2024-03-18] MEDS: ACETAMINOPHEN 650 MG/20.3 ML UDC GT PRN (17:00)
[2024-03-18 20:00] VITALS: BP 145/70; TEMP 97.3; O2SAT 94
[2024-03-19] VITALS: BP 143/67; TEMP 98.1; O2SAT 94
[2024-03-19 04:00] VITALS: BP 150/78; TEMP 98.2; O2SAT 96
[2024-03-19 06:56] LABS: BASOPHILS % (AUTO) 0.4 % (0.0-2.0); EOSINOPHILS % (AUTO) 0.2 % (0.0-6.0); HEMATOCRIT 36 % (33-45); HEMOGLOBIN 11.9 g/dL (11.5-14.8); LYMPHOCYTES # (AUTO) 0.9 K/uL (0.8-4.8); LYMPHOCYTES % (AUTO) 7.3 % (20.0-44.0); MEAN CORPUSCULAR HEMOGLOBIN 31 PG (26.0-33.0); MEAN CORPUSCULAR HGB CONC 33 g/dl (31.0-36.0); MEAN CORPUSCULAR VOLUME 94 fL (82-100); MONOCYTES # (AUTO) 0.9 K/uL (0.1-1.30); NEUTROPHILS % (AUTO) 85.1 % (43.0-81.0); PLATELET COUNT (AUTO) 185 K/uL (150-450); RED BLOOD CELL COUNT(AUTO) 3.88 MIL/uL (4.0-5.2); RED CELL DISTRIBUTION WIDTH 14.9 % (11.5-15.0); WHITE BLOOD COUNT (AUTO) 12.9 K/uL (4.3-11.0)
[2024-03-19 07:22] LABS: CALCIUM, SERUM 10.9 mg/dL (8.5-10.1); CARBON DIOXIDE 36 mmol/L (21-32); CHLORIDE 102 mmol/L (98-107); CREATININE 0.6 mg/dL (0.6-1.3); GLUCOSE 181 mg/dL (74-106); POTASSIUM 4.4 mmol/L (3.5-5.1); SODIUM SERUM 138 mmol/L (136-145); UREA NITROGEN, BLOOD 16 mg/dL (7-18)
[2024-03-19 08:00] VITALS: BP 155/65; TEMP 99.5; O2SAT 94
[2024-03-19 16:00] VITALS: BP 142/71; TEMP 99.3; O2SAT 94
[2024-03-19 20:00] VITALS: BP 159/89; TEMP 98.4; O2SAT 97
[2024-03-20 04:00] VITALS: BP 140/59; TEMP 98.1; O2SAT 99
[2024-03-20 07:08] LABS: BASOPHILS % (AUTO) 0.3 % (0.0-2.0); EOSINOPHILS % (AUTO) 0.2 % (0.0-6.0); HEMATOCRIT 33 % (33-45); HEMOGLOBIN 10.9 g/dL (11.5-14.8); LYMPHOCYTES % (AUTO) 7.5 % (20.0-44.0); MEAN CORPUSCULAR HEMOGLOBIN 31 PG (26.0-33.0); MEAN CORPUSCULAR HGB CONC 33 g/dl (31.0-36.0); MEAN CORPUSCULAR VOLUME 94 fL (82-100); MONOCYTES # (AUTO) 1.2 K/uL (0.1-1.30); MONOCYTES % (AUTO) 8.9 % (2.0-12.0); NEUTROPHILS # (AUTO) 10.8 K/uL (1.8-8.9); NEUTROPHILS % (AUTO) 83.1 % (43.0-81.0); PLATELET COUNT (AUTO) 177 K/uL (150-450); RED BLOOD CELL COUNT(AUTO) 3.52 MIL/uL (4.0-5.2)
[2024-03-20 07:33] LABS: CALCIUM, SERUM 11.8 mg/dL (8.5-10.1); CARBON DIOXIDE 32 mmol/L (21-32); CHLORIDE 105 mmol/L (98-107); CREATININE 0.6 mg/dL (0.6-1.3); GLUCOSE 146 mg/dL (74-106); PHOSPHORUS 2.8 mg/dL (2.5-4.9); POTASSIUM 4.3 mmol/L (3.5-5.1); SODIUM SERUM 142 mmol/L (136-145); UREA NITROGEN, BLOOD 22 mg/dL (7-18)
[2024-03-20 07:45] LABS: INR 1.03 (0.91-1.10); PARTIAL THROMBOPLASTIN TIME 25.8 SEC (24.3-34.3); PROTHROMBIN TIME 10.9 SECS (9.2-11.1)
[2024-03-20 10:00] VITALS: BP 142/64; TEMP 98.6; O2SAT 94
[2024-03-20] MEDS: PANTOPRAZOLE 40 MG VIAL IV SCH (14:30)
[2024-03-20] MEDS ORDERED: EPINEPHRINE (1:10,000) SYRINGE 1 MG/10 ML DISP.SYRIN IVP ONE (14:58)
[2024-03-20 20:00] VITALS: BP 141/60; TEMP 98.2; O2SAT 97
[2024-03-21 04:00] VITALS: BP 140/61; TEMP 98.4; O2SAT 96
[2024-03-21 07:50] LABS: BASOPHILS # (AUTO) 0.1 K/uL (0.0-0.2); BASOPHILS % (AUTO) 0.4 % (0.0-2.0); EOSINOPHILS % (AUTO) 0.1 % (0.0-6.0); HEMATOCRIT 30 % (33-45); HEMOGLOBIN 9.7 g/dL (11.5-14.8); LYMPHOCYTES # (AUTO) 1.3 K/uL (0.8-4.8); LYMPHOCYTES % (AUTO) 9.8 % (20.0-44.0); MEAN CORPUSCULAR HEMOGLOBIN 31 PG (26.0-33.0); MEAN CORPUSCULAR HGB CONC 32 g/dl (31.0-36.0); MEAN CORPUSCULAR VOLUME 95 fL (82-100); MONOCYTES # (AUTO) 0.9 K/uL (0.1-1.30); MONOCYTES % (AUTO) 7.1 % (2.0-12.0); NEUTROPHILS # (AUTO) 10.9 K/uL (1.8-8.9); NEUTROPHILS % (AUTO) 82.6 % (43.0-81.0); PLATELET COUNT (AUTO) 171 K/uL (150-450); RED BLOOD CELL COUNT(AUTO) 3.17 MIL/uL (4.0-5.2); RED CELL DISTRIBUTION WIDTH 15.1 % (11.5-15.0); WHITE BLOOD COUNT (AUTO) 13.2 K/uL (4.3-11.0)
[2024-03-21 08:00] VITALS: BP 135/54; TEMP 99; O2SAT 99
[2024-03-21 08:01] LABS: ALANINE AMINOTRANSFERASE 17 U/L (12-78); ALBUMIN 1.7 g/dL (3.4-5.0); ALKALINE PHOSPHATASE 68 U/L (46-116); ASPARTATE AMINOTRANSFERASE 20 U/L (15-37); CALCIUM, SERUM 10.8 mg/dL (8.5-10.1); CARBON DIOXIDE 35 mmol/L (21-32); CHLORIDE 111 mmol/L (98-107); CREATININE 0.6 mg/dL (0.6-1.3); GLUCOSE 109 mg/dL (74-106); MAGNESIUM 2.2 mg/dL (1.8-2.4); PHOSPHORUS 2.2 mg/dL (2.5-4.9); POTASSIUM 4.1 mmol/L (3.5-5.1); SODIUM SERUM 149 mmol/L (136-145); TOTAL PROTEIN, SERUM 5.5 g/dL (6.4-8.2); UREA NITROGEN, BLOOD 23 mg/dL (7-18)
[2024-03-21] MEDS ORDERED: CEFT1FRO2 IV (13:41)
[2024-03-21] MEDS ORDERED: NUT.237L45 NG (13:41)
[2024-03-21] MEDS ORDERED: Sodium Phosphate 15 MMOL in IV NS 0.9% 245 ML IV SCH (16:00)
== END 2024-03-21 15:10 | DRG 853 ==
LOC: ER 11:00 → TELE1 12:30 → ICU 03-09 17:55 → TELE1 03-12 12:10 → MEDSG1 03-14 10:02
PROVIDERS: ADMIT Internal Medicine; ATTEND Nurse Practitioner Acute Care
PROC: 0KBR0ZZ Excision of Left Upper Leg Muscle, Open Approach (ICD-10-PCS; principal; 2024-03-12)
PROC: 0KBR0ZZ Excision of Left Upper Leg Muscle, Open Approach (ICD-10-PCS; 2024-03-19)
PROC: 0DC58ZZ Extirpation of Matter from Esophagus, Via Natural or Artificial Opening Endoscopic (ICD-10-PCS; 2024-03-20)
PROC: 0DH63UZ Insertion of Feeding Device into Stomach, Percutaneous Approach (ICD-10-PCS; 2024-03-20)
DX: A41.59 Other Gram-negative sepsis (principal); E43 Unspecified severe protein-calorie malnutrition; G93.41 Metabolic encephalopathy; L89.894 Pressure ulcer of other site, stage 4; I21.A1 Myocardial infarction type 2; J96.01 Acute respiratory failure with hypoxia; J69.0 Pneumonitis due to inhalation of food and vomit; E87.0 Hyperosmolality and hypernatremia; E87.20 Acidosis, unspecified; I13.0 Hypertensive heart and chronic kidney disease with heart failure and stage 1 through stage 4 chronic kidney disease, or unspecified chronic kidney disease; N17.9 Acute kidney failure, unspecified; Z68.1 Body mass index [BMI] 19.9 or less, adult; R65.20 Severe sepsis without septic shock; B96.4 Proteus (mirabilis) (morganii) as the cause of diseases classified elsewhere; D64.9 Anemia, unspecified; E03.9 Hypothyroidism, unspecified; E78.5 Hyperlipidemia, unspecified; E11.22 Type 2 diabetes mellitus with diabetic chronic kidney disease; E83.52 Hypercalcemia; E86.0 Dehydration; E88.09 Other disorders of plasma-protein metabolism, not elsewhere classified; I50.9 Heart failure, unspecified; I25.10 Atherosclerotic heart disease of native coronary artery without angina pectoris; J45.909 Unspecified asthma, uncomplicated; K29.70 Gastritis, unspecified, without bleeding; M19.90 Unspecified osteoarthritis, unspecified site; R62.7 Adult failure to thrive; Z66 Do not resuscitate; Z85.3 Personal history of malignant neoplasm of breast; Z88.2 Allergy status to sulfonamides; N18.9 Chronic kidney disease, unspecified; M89.8X9 Other specified disorders of bone, unspecified site; Z90.710 Acquired absence of both cervix and uterus; F03.90 Unspecified dementia, unspecified severity, without behavioral disturbance, psychotic disturbance, mood disturbance, and anxiety; R13.10 Dysphagia, unspecified; S71.102A Unspecified open wound, left thigh, initial encounter; X58.XXXA Exposure to other specified factors, initial encounter; Y93.9 Activity, unspecified; Y92.009 Unspecified place in unspecified non-institutional (private) residence as the place of occurrence of the external cause; R93.0 Abnormal findings on diagnostic imaging of skull and head, not elsewhere classified; K26.9 Duodenal ulcer, unspecified as acute or chronic, without hemorrhage or perforation; F03.C0 Unspecified dementia, severe, without behavioral disturbance, psychotic disturbance, mood disturbance, and anxiety; N32.81 Overactive bladder; T18.128A Food in esophagus causing other injury, initial encounter; Z96.652 Presence of left artificial knee joint; N30.91 Cystitis, unspecified with hematuria
CPT/HCPCS: 36415; 36600; 43246; 70450-TC; 70496-TC; 70498-TC; 71045-TC; 80048-TC; 80053-TC; 80076-TC; 80202-TC; 81001; 82140-TC; 82607-TC; 82803-TC; 82962-TC; 83605-TC; 83735-TC; 83921; 83970; 84100-TC; 84425; 84436-TC; 84443-TC; 84484-TC; 85025-TC; 85730-TC; 87040-TC; 87081-TC; 87086-TC; 87186-TC; 92526; 92611-TC; 93307-TC; 94799-TC; 97110-TC; 97530-TC; A4217; A4223; A6253; A6403; A6407; A9563; G0378; J0171; J0360; J0692; J0696; J1815; J2270; J3370; J3490; J7030; J7050; J7060; J7070; Q9967